=== PATIENT | male | born 1975 | race Caucasian/White ===

== ENCOUNTER 2016-12-17 00:16 | Emergency (ER) | payer OTHER, MEDICARE ==
[2016-12-17 00:28] VITALS: BP 168/108
[2016-12-17] MEDS ORDERED: CEPHALEXIN 500 MG CAPSULE PO ONE (01:25)
[2016-12-17] MEDS ORDERED: SULFAMETHOXAZOLE/TRIMETHOPRIM 800-160 MG TABLET PO ONE (01:25)
--- NOTE | 2016-12-17 01:28 | ER Document Report ---
ED General - General Chief Complaint: Rash Stated Complaint: RASH Time Seen by Provider: 12/17/16 01:04 Notes: Patient is a 41-year-old male with past medical history of recurrent MRSA abscesses and rashes who presents with concerns of a rash on his left upper extremity. States this is been present for the past 2 days and getting progressively worse. States it feels very similar to when he had cellulitis secondary to MRSA in the past. Nothing seems to improve or worsen his symptoms. He does describe as having a dull, aching, throbbing pain. Nothing improves or worsens the symptoms. He has not seen a primary care doctor regarding today's concerns and states he wanted to come in as it is the holiday weekend and he did not want the rash get worse. TRAVEL OUTSIDE OF THE [place] IN LAST 30 DAYS: No - Related Data Allergies/Adverse Reactions: lisinopril Allergy (Verified 12/17/16 01:43) Past Medical History - General Information source: Patient - Social History Smoking Status: Never Smoker Frequency of alcohol use: None Drug Abuse: None Lives with: Spouse/Significant other Family History: Reviewed & Not Pertinent Renal/ Medical History: Denies: Hx Peritoneal Dialysis Review of Systems - Review of Systems Notes: Constitutional: Negative for fever. HENT: Negative for sore throat. Eyes: Negative for visual changes. Cardiovascular: Negative for chest pain. Respiratory: Negative for shortness of breath. Gastrointestinal: Negative for abdominal pain, vomiting or diarrhea. Genitourinary: Negative for dysuria. Musculoskeletal: Negative for back pain. Skin: Positive for rash. Neurological: Negative for headaches, weakness or numbness. 10 point ROS negative except as marked above and in HPI. Physical Exam - Vital signs Vitals: Temp Pulse Resp BP Pulse Ox 98.8 F 107 H 18 168/108 H 97 12/17/16 00:26 12/17/16 00:26 12/17/16 00:26 12/17/16 00:26 12/17/16 00:26 Interpretation: Hypertensive, Tachycardic Notes: PHYSICAL EXAMINATION: GENERAL: Well-appearing, well-nourished and in no acute distress. HEAD: Atraumatic, normocephalic. EYES: Pupils equal round and reactive to light, extraocular movements intact, sclera anicteric, conjunctiva are normal. ENT: nares patent, oropharynx clear without exudates. Moist mucous membranes. NECK: Normal range of motion, supple without lymphadenopathy LUNGS: Breath sounds clear to auscultation bilaterally and equal. No wheezes rales or rhonchi. HEART: Regular rate and rhythm without murmurs ABDOMEN: Soft, nontender, normoactive bowel sounds. No guarding, no rebound. No masses appreciated. EXTREMITIES: Normal range of motion, no pitting or edema. No cyanosis. NEUROLOGICAL: No focal neurological deficits. Moves all extremities spontaneously and on command. PSYCH: Normal mood, normal affect. SKIN: Warm, Dry, normal turgor, scattered erythema and pustular lesions along the left forearm Course - Re-evaluation Re-evalutation: 12/17/16 01:25 Patient presents with symptoms most consistent with an acute cellulitis. Vitals within normal limits. Patient does not meet sepsis criteria is overall very well in appearance. Exam and history are not consistent with DVT. Patient will be started on coverage for both staph and strep. At this time will discharge with return precautions and follow-up recommendations. Verbal discharge instructions given a the bedside and opportunity for questions given. Medication warnings reviewed. Patient is in agreement with this plan and has verbalized understanding of return precautions and the need for primary care follow-up in the next 24-72 hours. - Vital Signs Vital signs: Temp Pulse Resp BP Pulse Ox 98.8 F 107 H 18 168/108 H 97 12/17/16 00:26 12/17/16 00:26 12/17/16 00:26 12/17/16 00:26 12/17/16 00:26 Discharge - Discharge Clinical Impression: Left arm cellulitis Condition: Good Disposition: HOME, SELF-CARE Additional Instructions: The rash is likely due to infection of your skin. You need to take the antibiotics as prescribed. Do not stop even if the rash goes away until you have completed all the antibiotics. Please return if you develop fevers with temperature greater than 101, persistent vomiting, worsening pain, the rash spreads despite antibiotics, or you have any other symptoms that are concerning to you. Prescriptions: Cephalexin Monohydrate [Keflex 500 mg Capsule] 500 mg PO QID #28 capsule Sulfamethoxazole/Trimethoprim [Bactrim Ds Tablet] 1 tab PO BID #14 tablet
== END 2016-12-17 01:40 | disposition home or self-care (01) ==
LOC: ER 00:16
DX: L03.114 Cellulitis of left upper limb (principal); R21 Rash and other nonspecific skin eruption
CPT/HCPCS: 99282